=== PATIENT | male | born 1995 | race Caucasian/White ===

== ENCOUNTER 2021-05-07 14:35 | Emergency (ER) | payer OTHER ==
[2021-05-07 14:40] VITALS: BP 126/83; PULSE 87; TEMP 97; BMI 33.2
[2021-05-07] MEDS ORDERED: KETOROLAC TROMETHAMINE 30 MG/1 ML VIAL IVPUSH ONE (14:56)
[2021-05-07] MEDS ORDERED: METOCLOPRAMIDE HCL INJECTION 10 MG/2 ML VIAL IVPB ONE (14:56)
[2021-05-07] MEDS ORDERED: METOCLOPRAMIDE HCL INJECTION 10 MG/2 ML VIAL ONE (15:20)
[2021-05-07] MEDS ORDERED: KETOROLAC TROMETHAMINE 30 MG/1 ML VIAL ONE (15:20)
[2021-05-07] MEDS ORDERED: ONDANSETRON *ODT* 4 MG TABLET SL ONE (15:34)
[2021-05-07] MEDS ORDERED: ONDANSETRON *ODT* 4 MG TABLET ONE (15:35)
== END 2021-05-07 17:00 | disposition home or self-care (01) ==
LOC: JER 14:35
PROC: 3E0333Z Introduction of Anti-inflammatory into Peripheral Vein, Percutaneous Approach (ICD-10-PCS; principal; 2021-05-07)
PROC: 3E033GC Introduction of Other Therapeutic Substance into Peripheral Vein, Percutaneous Approach (ICD-10-PCS; 2021-05-07)
DX: R51.9 Headache, unspecified (principal); J01.10 Acute frontal sinusitis, unspecified; R11.2 Nausea with vomiting, unspecified
CPT/HCPCS: 70450-TC; 99285-25; Q0162